=== PATIENT | male | born 1960 | race Two or more races ===

== ENCOUNTER → 2024-09-17 08:03 | Outpatient (REF) | payer OTHER, SELFPAY | LOC: RCS 08:03 | PROVIDERS: ATTENDING PHYSICIAN Internal Medicine Interventional Cardiology; FAMILY PHYSICIAN Student in an Organized Health Care Education/Training Program | DX: I25.10 Atherosclerotic heart disease of native coronary artery without angina pectoris (principal); Z95.1 Presence of aortocoronary bypass graft | CPT/HCPCS: 93306 ==

== ENCOUNTER → 2024-10-17 16:37 | Outpatient (REF) | payer OTHER, SELFPAY | LOC: RAD 16:37 | PROVIDERS: ATTENDING PHYSICIAN Student in an Organized Health Care Education/Training Program | DX: R06.02 Shortness of breath (principal); Z80.1 Family history of malignant neoplasm of trachea, bronchus and lung | CPT/HCPCS: 71250 ==

== ENCOUNTER → 2024-11-05 15:42 | Outpatient (REF) | payer OTHER, SELFPAY | LOC: PAVMRI 15:42 | PROVIDERS: ATTENDING PHYSICIAN Student in an Organized Health Care Education/Training Program | DX: G25.2 Other specified forms of tremor (principal) | CPT/HCPCS: 70551 ==

== ENCOUNTER → 2025-02-05 07:24 | Outpatient (REF) | payer OTHER, SELFPAY | LOC: HWRCS 07:24 | PROVIDERS: ATTENDING PHYSICIAN Internal Medicine Interventional Cardiology; FAMILY PHYSICIAN Student in an Organized Health Care Education/Training Program | DX: Z95.1 Presence of aortocoronary bypass graft (principal); R06.01 Orthopnea | CPT/HCPCS: 78452; 93017; A9500; J2785 ==

== ENCOUNTER → 2025-07-29 15:11 | Outpatient (REF) | payer OTHER, SELFPAY | LOC: RAD 15:11 | PROVIDERS: ATTENDING PHYSICIAN Student in an Organized Health Care Education/Training Program | DX: M79.89 Other specified soft tissue disorders (principal); M25.541 Pain in joints of right hand; M25.542 Pain in joints of left hand; M54.16 Radiculopathy, lumbar region; M25.551 Pain in right hip | CPT/HCPCS: 72110; 73130; 73502 ==

== ENCOUNTER → 2025-11-06 16:17 | Outpatient (REF) | payer OTHER, SELFPAY | LOC: PAVMRI 16:17 | PROVIDERS: ATTENDING PHYSICIAN Student in an Organized Health Care Education/Training Program | DX: M54.16 Radiculopathy, lumbar region (principal) | CPT/HCPCS: 72148 ==